=== PATIENT | male | born 1945 | race Caucasian/White ===

== ENCOUNTER 2017-05-13 08:54 | Outpatient (CLI) | payer MEDICARE, OTHER ==
--- NOTE | 2017-05-13 11:01 | RAD ---
3 VIEWS RIGHT SHOULDER: Date: 05/13/17 INDICATION: Right shoulder pain limiting range of motion. Fall while getting out of shower. COMPARISON: None. FINDINGS: The visualized right lung is clear. 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 There are pr ominent inferior projecting osteophytes off the acromial process in the distal clavicle which may pre dispose to symptoms of impingement. There are degenerative subchondral cyst-like abnormalities seen i nvolving the greater tuberosity. No acute fracture or subluxation is evident. IMPRESSION: 1. No acute osseous abnormality. 2. Moderate to severe AC joint osteoarthrosis. POS: [facility]
== END 2017-05-13 08:55 | disposition home or self-care (01) ==
LOC: NAV RAD 08:54
PROVIDERS: ATTEND Family Medicine
DX: M25.511 Pain in right shoulder (principal); M19.011 Primary osteoarthritis, right shoulder